=== PATIENT | female | born 1940 | race Caucasian/White ===

== ENCOUNTER 2024-01-17 19:49 | Inpatient (IN) | payer MEDICARE ==
[2024-01-17] MEDS ORDERED: Ondansetron PF 4 MG/2 ML Vial IVP PRN (23:36)
[2024-01-17] MEDS ORDERED: Ipratropium/Albuterol 3 ML NEB NEB PRN (23:36)
[2024-01-17] MEDS ORDERED: Morphine 2 MG/ML VIAL SLOW IVP PRN (23:36)
[2024-01-17] MEDS ORDERED: Acetaminophen/Codeine 30-300mg Tablet PO PRN (23:38)
[2024-01-17] MEDS ORDERED: Labetalol HCl 100 MG/20 ML VIAL SLOW IVP PRN (23:47)
[2024-01-17] MEDS ORDERED: hydrALAZINE 20 MG/ML VIAL SLOW IVP PRN (23:47)
[2024-01-18] MEDS: Acetaminophen 325 MG TAB PO SCH (00:36)
[2024-01-18 02:24] VITALS: BMI 25.0
[2024-01-18] MEDS ORDERED: TETANUS, DIPHTHERIA TOX,ADULT (TDVAX) 0.5 ML VIAL IM ONE (17:58)
[2024-01-19 15:38] VITALS: BP 171/70; TEMP 98
== END 2024-01-19 16:00 | disposition home or self-care (01) | DRG 84 ==
LOC: INTOOBSV 23:11 → SURG A 23:11 → OBSVTOIN 01-18 17:58
PROVIDERS: ADMIT Student in an Organized Health Care Education/Training Program; ATTEND Student in an Organized Health Care Education/Training Program
DX: S06.5XAA Traumatic subdural hemorrhage with loss of consciousness status unknown, initial encounter (principal); W01.190A Fall on same level from slipping, tripping and stumbling with subsequent striking against furniture, initial encounter; M19.90 Unspecified osteoarthritis, unspecified site; I10 Essential (primary) hypertension; Z88.1 Allergy status to other antibiotic agents; Z88.2 Allergy status to sulfonamides; Y93.89 Activity, other specified; Z79.82 Long term (current) use of aspirin; Z79.899 Other long term (current) drug therapy; Z95.2 Presence of prosthetic heart valve; Y92.090 Kitchen in other non-institutional residence as the place of occurrence of the external cause; Z88.8 Allergy status to other drugs, medicaments and biological substances
CPT/HCPCS: 12002; 36415; 70450; 72125; 80053; 85025; 85610; 85730; 90471; 90715; G0378